=== PATIENT | female | born 1980 | race Caucasian/White ===

== ENCOUNTER 2020-07-24 10:46 | Emergency (ER) | payer MEDICAID ==
[~2020-07-24] VITALS: Ht 157 cm; Wt 81.6 kg
[~2020-07-24 10:46] MED LIST: PREN1TAB4
[2020-07-24 11:13] LABS: BILIRUBIN,URINE NEGATIVE (NEGATIVE); CLARITY,URINE CLEAR; COLOR,URINE YELLOW; GLUCOSE, URINE (UA) NEGATIVE (NEGATIVE); KETONES,URINE NEGATIVE (NEGATIVE); LEUKOCYTE ESTERASE ,URINE NEGATIVE (NEGATIVE); NITRITE,URINE NEGATIVE (NEGATIVE); PROTEIN,URINE NEGATIVE (NEGATIVE)
[2020-07-24 11:20] LABS: BASOPHILS # (AUTO) 0.1 10^3/uL (0.0-0.1); BASOPHILS % (AUTO) 0 % (0-10); EOSINOPHILS # (AUTO) 0.1 10^3/uL (0.0-0.3); EOSINOPHILS % (AUTO) 1 % (0-10); HEMATOCRIT 36 % (35-52); LYMPHOCYTES # (AUTO) 1.4 10^3/uL (1.0-4.0); LYMPHOCYTES % (AUTO) 8 % (12-44); MEAN CORPUSCULAR HEMOGLOBIN 31 pg (25-34); MEAN CORPUSCULAR HGB CONC 33 g/dL (32-36); MEAN CORPUSCULAR VOLUME 95 fL (80-99); MEAN PLATELET VOLUME 9.6 fL (9.0-12.2); MONOCYTES # (AUTO) 1.5 10^3/uL (0.0-1.0); MONOCYTES % (AUTO) 9 % (0-12); NEUTROPHILS % (AUTO) 82 % (42-75); PLATELET COUNT 340 10^3/uL (130-400); WHITE BLOOD COUNT 17.1 10^3/uL (4.3-11.0)
[2020-07-24 11:27] LABS: BACTERIA,URINE TRACE /HPF
[2020-07-24 11:33] LABS: ALBUMIN 4.1 GM/DL (3.2-4.5); CHLORIDE 99 MMOL/L (98-107); SODIUM 135 MMOL/L (135-145)
[2020-07-24 11:34] LABS: CALCIUM 9.3 MG/DL (8.5-10.1)
[2020-07-24 11:35] LABS: AMYLASE 73 U/L (25-125); GLUCOSE 111 MG/DL (70-105); TOTAL PROTEIN 7.1 GM/DL (6.4-8.2)
[2020-07-24 11:36] LABS: CARBON DIOXIDE 26 MMOL/L (21-32)
[2020-07-24 11:37] LABS: BILIRUBIN,TOTAL 0.3 MG/DL (0.1-1.0)
[2020-07-24 11:39] LABS: ALKALINE PHOSPHATASE 61 U/L (40-136); CREATININE SERUM 0.85 MG/DL (0.60-1.30); GFR ESTIMATED > 60
[2020-07-24 11:40] LABS: BUN/CREATININE RATIO 9
[2020-07-24 11:42] LABS: ALANINE AMINOTRANSFERASE 10 U/L (0-55)
[2020-07-24 11:42] LABS: AMPHETAMINE SCREEN, URINE NEGATIVE (NEGATIVE); BARBITURATE SCREEN URINE NEGATIVE (NEGATIVE); BENZODIAZEPINES SCREEN URINE POSITIVE (NEGATIVE); CANNABINOID SCREEN, URINE POSITIVE (NEGATIVE); COCAINE SCREEN URINE NEGATIVE (NEGATIVE); METHADONE STAT NEGATIVE (NEGATIVE); METHAMPHETAMINE SCREEN URINE S NEGATIVE (NEGATIVE); OPIATE SCREEN URINE POSITIVE (NEGATIVE); OXYCODONE STAT POSITIVE (NEGATIVE); PROPOXYPHENE STAT NEGATIVE (NEGATIVE); TRICYCLIC ANTIDEPRESSANTS SCRE NEGATIVE (NEGATIVE)
[2020-07-24 11:43] LABS: LIPASE 19 U/L (8-78)
[2020-07-24] MEDS ORDERED: KETOROLAC 30 MG/ML VIAL IVP ONE ×2 (11:45→13:00)
--- NOTE | 2020-07-24 12:02 | ED Abdominal Pain ---
General Chief Complaint: Abdominal/GI Problems Stated Complaint: ABD PAIN Nursing Triage Note: pt presents to ed with complaints of intermittent abdominal and rectal pain x 9 days. pt denies diahrrea but reports constipation x 2 days. pt reports nausea and one episode of vomiting today. Sepsis Screen: Possible Sepsis Risk Source of Information: Patient History of Present Illness Date Seen by Provider: Jul 24, 2020 Time Seen by Provider: 11:04 Initial Comments PT ARRIVES VIA POV FROM HOME C/O ABDOMINAL PAIN X 9 DAYS STATES PAIN STARTED IN EPIGASTRIC AREA, AND LASTED FOR 5 DAYS, THEN PAIN MOVED DOWN TO RECTAL/PERINEAL AREA FOR THE LAST 3 DAYS PT RATES PAIN 3/10 NOW, BUT IS "EXCRUCIATING" AT TIMES PAIN IS WORSE ON URINATING AND HAVING BM OR PASSING GAS--STATES SHE HAS TO STRAIN TO DO ANY OF THOSE TODAY HAD NAUSEA AND VOMITED X 1--ONLY TIME SHE HAS HAD VOMITING STATES SHE HAD BEEN HAVING DIARRHEA/LOOSE STOOLS, AND HAS HAD CONSTIPATION FOR T HE LAST 2 DAYS--HAS BEEN HAVING BM'S EVERY DAY HAD FEVER OF "ABOUT 100" YESTERDAY STATES SHE HAS BEEN DRINKING "ALOT OF HOT AND COLD LIQUIDS" NO HISTORY OF SIMILAR NO PRIOR GI PROBLEMS OR SURGERIES HAS NOT TAKEN ANYTHING FOR PAIN AT ANY TIME SYMPTOMS NO DIFFERENT TODAY, AND STATES TODAY IS NOT BAD IT HAS BEEN HAS NOT SOUGHT CARE UNTIL TODAY LMP--HAS PERIODS EVERY 18 DAYS, BUT CANNOT STATE WHEN HER LAST ONE WAS. HAS HAD BTL DENIES ANY COVID-19 SYMPTOMS OR KNOWN EXPOSURE PCP: GREGORIO--STATES SHE HAS ALL OF HER MEDICAL CARE AT Allergies and Home Medications Allergies Uncoded Allergies: [id number] (METROGEL VAGINAL) (Allergy, Mild, 10/22/08) Home Medications Ciprofloxacin HCl 500 Mg Tablet, 500 MG PO BID Prescribed by: RAVIN PINA on 07/24/20 1304 Ketorolac Tromethamine 10 Mg Tablet, 10 MG PO Q6H Prescribed by: RAVIN PINA on 07/24/20 1305 L. Acidophilus/Pectin, [place]unn 1 Each Capsule, 2 EACH PO QID Prescribed by: RAVIN PINA on 07/24/20 1304 Metronidazole 500 Mg Tablet, 500 MG PO QID Prescribed by: RAVIN PINA on 07/24/20 1304 Ondansetron 8 Mg Tab.rapdis, 8 MG PO Q4H PRN for NAUSEA/VOMITING Prescribed by: RAVIN PINA on 07/24/20 3582 Patient Home Medication List Home Medication List Reviewed: Yes Review of Systems Review of Systems Constitutional: see HPI, fever EENTM: No Symptoms Reported Respiratory: No Symptoms Reported; Denies Cough, Denies Shortness of Air Cardiovascular: No Symptoms Reported; Denies Chest Pain Gastrointestinal: See HPI, Abdominal Pain, Constipated, Diarrhea, Nausea, Vomi ting Genitourinary: See HPI Musculoskeletal: no symptoms reported; No back pain Skin: no symptoms reported Psychiatric/Neurological: Anxiety Endocrine: No Symptoms Reported Hematologic/Lymphatic: No Symptoms Reported Past Gjuaalk-Dglygg-Vukvmn Hx Past Med/Social Hx: Reviewed and Corrections made Patient Social History Alcohol Use: Occasionally Uses Drug of Choice: marijuana Smoking Status: Current Everyday Smoker Type Used: Cigarettes Recent Infectious Disease Expo: No Recent Hopitalizations: No Past Medical History Surgeries: Yes ( X 1 ) Section, Tubal Ligation Respiratory: No Cardiac: No Neurological: No : No Reproductive Disorders: No (PLACENTAL ABRUPTION WITH LAST CHILD--HAD ) Female Reproductive Disorders: Denies PHILOSOPHY FACULTY MEMBER History: Tubal Ligation Genitourinary: No Gastrointestinal: No Musculoskeletal: Yes Chronic Back Pain Endocrine: No (OBESITY) HEENT: No Cancer: No Psychosocial: Yes Anxiety, PTSD, Depression Integumentary: No Blood Disorders: No Family Medical History SOCIAL HISTORY: -ETOH--HISTORY OF REGULAR USE--"COUPLE OF TIMES A WEEK" -DRUGS--ADMITS TO THC, ALSO TESTED + FOR OXYCODONE 07/24/20 ( NO PRESCRIBED TO HER PER MED RECONCILIATION AND PER [facility]) -SMOKES 1 PPD Physical Exam Vital Signs Vital Signs - First Documented 07/24/20 10:59 Temp 35.6 Pulse 100 Resp 20 B/P (MAP) 140/104 (116) Pulse Ox 95 Capillary Refill : Less Than 3 Seconds Height/Weight/BMI Height: '" Weight: lbs. oz. kg; 33.00 BMI Method: General Appearance: WD/WN, no apparent distress, obese, other (UNKEMPT. TALKS RAPIDLY NON-STOP AT LENGTH. DOES NOT APPEAR TO BE IN ANY DISCOMFORT OR DISTRESS. WALKS UPRIGHT AND MOVES WITHOUT DIFFICULTY. 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 tested, no motor/sensory deficits, alert, oriented x 3 Skin: warm/dry, pallor, tattoos/piercings (MULTIPLE TATTOOS) Progress/Results/Core Measures Results/Orders Lab Results Laboratory Tests Test 07/24/20 10:59 07/24/20 11:07 Range/Units Urine Color YELLOW Urine Clarity CLEAR Urine pH 6.0 5-9 Urine Specific [place] 1.025 H 1.016-1.022 Urine Protein NEGATIVE NEGATIVE Urine Glucose (UA) NEGATIVE NEGATIVE Urine Ketones NEGATIVE NEGATIVE Urine Nitrite NEGATIVE NEGATIVE Urine Bilirubin NEGATIVE NEGATIVE Urine Urobilinogen 0.2 < = 1.0 MG/DL Urine Leukocyte Esterase NEGATIVE NEGATIVE Urine RBC (Auto) TRACE-I NEGATIVE Urine RBC 2-5 H /HPF Urine WBC NONE /HPF Urine Squamous Epithelial Cells 2-5 /HPF Urine Crystals NONE /LPF Urine Bacteria TRACE /HPF Urine Casts NONE /LPF Urine Mucus SMALL H /LPF Urine Culture Indicated NO Urine Opiates Screen POSITIVE H NEGATIVE Urine Oxycodone Screen POSITIVE H NEGATIVE Urine Methadone Screen NEGATIVE NEGATIVE Urine Propoxyphene Screen NEGATIVE NEGATIVE Urine Barbiturates Screen NEGATIVE NEGATIVE Ur Tricyclic Antidepressants Screen NEGATIVE NEGATIVE Urine Phencyclidine Screen NEGATIVE NEGATIVE Urine Amphetamines Screen NEGATIVE NEGATIVE Urine Methamphetamines Screen NEGATIVE NEGATIVE Urine Benzodiazepines Screen POSITIVE H NEGATIVE Urine Cocaine Screen NEGATIVE NEGATIVE Urine Cannabinoids Screen POSITIVE H NEGATIVE White Blood Count 17.1 H 4.3-11.0 10^3/uL Red Blood Count 3.82 3.80-5.11 10^6/uL Hemoglobin 12.0 11.5-16.0 g/dL Hematocrit 36 35-52 % Mean Corpuscular Volume 95 80-99 fL Mean Corpuscular Hemoglobin 31 25-34 pg Mean Corpuscular Hemoglobin Concent 33 32-36 g/dL Red Cell Distribution Width 12.7 10.0-14.5 % Platelet Count 340 130-400 10^3/uL Mean Platelet Volume 9.6 9.0-12.2 fL Immature Granulocyte % (Auto) 1 % Neutrophils (%) (Auto) 82 H 42-75 % Lymphocytes (%) (Auto) 8 L 12-44 % Monocytes (%) (Auto) 9 0-12 % Eosinophils (%) (Auto) 1 0-10 % Basophils (%) (Auto) 0 0-10 % Neutrophils # (Auto) 14.0 H 1.8-7.8 10^3/uL Lymphocytes # (Auto) 1.4 1.0-4.0 10^3/uL Monocytes # (Auto) 1.5 H 0.0-1.0 10^3/uL Eosinophils # (Auto) 0.1 0.0-0.3 10^3/uL Basophils # (Auto) 0.1 0.0-0.1 10^3/uL Immature Granulocyte # (Auto) 0.1 0.0-0.1 10^3/uL Neutrophils % (Manual) 79 % Lymphocytes % (Manual) 10 % Monocytes % (Manual) 8 % Eosinophils % (Manual) 0 % Basophils % (Manual) 0 % Band Neutrophils 3 % Blood Morphology Comment NORMAL Sodium Level 135 135-145 MMOL/L Potassium Level 4.0 3.6-5.0 MMOL/L Chloride Level 99 98-107 MMOL/L Carbon Dioxide Level 26 21-32 MMOL/L Anion Gap 10 5-14 MMOL/L Blood Urea Nitrogen 8 7-18 MG/DL Creatinine 0.85 0.60-1.30 MG/DL Estimat Glomerular Filtration Rate > 60 BUN/Creatinine Ratio 9 Glucose Level 111 H 70-105 MG/DL Calcium Level 9.3 8.5-10.1 MG/DL Corrected Calcium 9.2 8.5-10.1 MG/DL Magnesium Level 2.0 1.6-2.4 MG/DL Total Bilirubin 0.3 0.1-1.0 MG/DL Aspartate Amino Transf (AST/SGOT) 11 5-34 U/L Alanine Aminotransferase (ALT/SGPT) 10 0-55 U/L Alkaline Phosphatase 61 40-136 U/L Total Protein 7.1 6.4-8.2 GM/DL Albumin 4.1 3.2-4.5 GM/DL Amylase Level 73 25-125 U/L Lipase 19 8-78 U/L Serum Alcohol < 10 <10 MG/DL My Orders Orders - RAVIN PINA DO Urine Bedside (07/24/20 11:02) Ua Culture If Indicated (07/24/20 11:02) Ed Iv/Invasive Line Start (07/24/20 11:13) Alcohol (07/24/20 11:13) Amylase (07/24/20 11:13) Cbc With Automated Diff (07/24/20 11:13) Comprehensive Metabolic Panel (07/24/20 11:13) Drug Screen Stat (Urine) (07/24/20 11:13) Lipase (07/24/20 11:13) Magnesium (07/24/20 11:13) Manual Differential (07/24/20 11:07) Ct Abd/Pelvis Wo(Kidney Stone) (07/24/20 11:42) Acute Abd Series (07/24/20 11:42) Ketorolac Injection (Toradol Injection) (07/24/20 11:45) Metronidazole Tablet (Flagyl Tablet) (07/24/20 13:00) Ketorolac Injection (Toradol Injection) (07/24/20 13:00) Ciprofloxacin Iv 400mg/200ml (Cipro Iv S (07/24/20 13:15) Medications Given in ED Current Medications Medications Dose Ordered Sig/Lissette Route Start Time Stop Time Status Last Admin Dose Admin Ciprofloxacin/ Dextrose 200 ml @ 200 mls/hr ONCE ONCE IV 07/24/20 13:15 07/24/20 14:14 DC 07/24/20 13:13 200 MLS/HR Ketorolac Tromethamine 30 mg ONCE ONCE IVP 07/24/20 11:45 07/24/20 11:46 DC 07/24/20 11:47 30 MG Metronidazole 500 mg ONCE ONCE PO 07/24/20 13:00 07/24/20 13:01 DC 07/24/20 13:12 500 MG Vital Signs/I&O 07/24/20 07/24/20 10:59 14:18 Temp 35.6 36.8 Pulse 100 83 Resp 20 16 B/P (MAP) 140/104 (116) 116/76 Pulse Ox 95 99 Blood Pressure Mean: 116 Progress Progress Note : Progress Note UNEVENTFUL ER STAY VITALS STABLE NO FEVER GIVEN IV FLUIDS, TORADOL WITH IMPROVEMENT IN SYMPTOMS ALSO GIVEN CIPRO IV AND FLAGYL PO--PT STATES SHE CAN TAKE AND HAS TAKEN ORAL FLAGYL WITHOUT ANY PROBLEMS Diagnostic Imaging Comments ABDOMEN XRAYS--PER RADIOLOGIST REPORT AT 1239 Impression: 1. The bowel gas pattern is nonspecific. There is no acute abnormality identified. 2. There does be a fair amount of fecal material throughout the colon. 3. Please refer to the CT abdomen/pelvis exam report for additional information. CT ABDOMEN/PELVIS--PER RADIOLOGIST REPORT AT 1253 IMPRESSION: 1. Diverticulitis involving the sigmoid colon. No abscess or free fluid. No evidence of free air. 2. No evidence of obstructing calculi or hydronephrosis. Punctate nonobstructing calculus is seen in the inferior pole of the right kidney. Reviewed: Reviewed by Me Departure Communication (Admissions) 1254--SPOKE WITH DR. ESTES, SURGEON RAZOR SHARPENER, ADVISES TO SEND HOME ON ORAL ANTIBIOTICS AND HE WILL SEE PT IN FOLLOW UP IN CLINIC. Impression Primary Impression: Diverticulitis of intestine Additional Impression: Illicit drug use Disposition: HOME, SELF-CARE Condition: Improved Departure-Patient Inst. Referrals: ANDREW ESTES,LOCAL PHYSICIAN (PCP) Primary Care Physician Patient Instructions: Diverticulosis (DC) Add. Discharge Instructions: CLEAR LIQUIDS--WATER, BROTH, JELLO, GATORADE, CLEAR JUICES NO FOOD UNTIL YOU ARE RECHECKED AND CLEARED BY DR. CONTINUE YOUR REGULAR MEDICATIONS PRESCRIBED FOLLOW UP WITH DR. ESTES, LOCAL SURGEON, IN 3-4 DAYS, OR YOU MAY FOLLOW UP WITH [facility] IN A FEW DAYS FOR FURTHER CARE RETURN TO ER IF SYMPTOMS WORSEN All discharge instructions reviewed with patient and/or family. Voiced understanding. Scripts Ketorolac Tromethamine (Ketorolac Tromethamine) 10 Mg Tablet 10 MG PO Q6H for Pain, #15 TAB Prov: RAVIN PINA DO 07/24/20 Ondansetron (Ondansetron Odt) 8 Mg Tab.rapdis 8 MG PO Q4H PRN for NAUSEA/VOMITING, #10 TAB Prov: RAVIN PINA DO 07/24/20 L. Acidophilus/Pectin, [place] (Acidophilus Capsule) 1 Each Capsule 2 EACH PO QID, #40 CAP Prov: RAVIN PINA DO 07/24/20 Metronidazole (Flagyl) 500 Mg Tablet 500 MG PO QID, #40 TAB Prov: RAVIN PINA DO 07/24/20 Ciprofloxacin HCl (Ciprofloxacin HCl) 500 Mg Tablet 500 MG PO BID, #20 TAB Prov: RAVIN PINA DO 07/24/20 RAVIN PINA DO Jul 24, 2020 12:02
--- NOTE | 2020-07-24 12:24 | Diagnostic Imaging Report ---
Acute abdomen series. Indication: Abdominal pain. There are no prior plain film studies available for comparison. The accompanying PA chest shows heart size to be within normal limits. The lungs are clear. There is no sign of a pneumoperitoneum. Supine and erect views of the abdomen obtained. There is gas in both the large and small bowel in a nonspecific fashion. There is no sign of obstruction. There also appears to be a fair amount of fecal material throughout the colon. These findings are similar to the CT abdomen/pelvis exam performed just prior to this study. There is no mass or organomegaly identified. The osseous structures are intact. Impression: 1. The bowel gas pattern is nonspecific. There is no acute abnormality identified. 2. There does be a fair amount of fecal material throughout the colon. 3. Please refer to the CT abdomen/pelvis exam report for additional information. Dictated by: Dictated on workstation # [id number]
[2020-07-24 12:25] LABS: BAND NEUTROPHILS 3 %; BASOPHILS % (MANUAL) 0 %; EOSINOPHILS % (MANUAL) 0 %; LYMPHOCYTES % (MANUAL) 10 %; MONOCYTES % (MANUAL) 8 %; NEUTROPHILS % (MANUAL) 79 %; RBC MORPH NORMAL
--- NOTE | 2020-07-24 12:47 | Diagnostic Imaging Report ---
PROCEDURE: CT urinary tract, rule out kidney stone. TECHNIQUE: Multiple contiguous axial images were obtained through the abdomen and pelvis without the use of intravenous contrast. Auto Exposure Controls were utilized during the CT exam to meet ALARA standards for radiation dose reduction. INDICATION: Microhematuria. Abdominal pain. COMPARISON: None. FINDINGS: The heart is unremarkable. The lung bases are clear. The liver, spleen, pancreas, and adrenal glands have a normal appearance. No evidence of obstructive renal calculi or hydronephrosis. A punctate nonobstructing calculus is seen in the inferior pole of the right kidney measuring 2 mm. There is no pathologically enlarged mesenteric or retroperitoneal adenopathy. The bowel loops are nondilated. The appendix is visualized in the right lower quadrant has a normal appearance. Diverticuli are seen throughout the sigmoid colon with pericolonic inflammatory changes present. There is no free fluid or free air. No acute osseous abnormalities. The urinary bladder is decompressed. There is no free air, loculated collection, or adenopathy in the pelvis. IMPRESSION: 1. Diverticulitis involving the sigmoid colon. No abscess or free fluid. No evidence of free air. 2. No evidence of obstructing calculi or hydronephrosis. Punctate nonobstructing calculus is seen in the inferior pole of the right kidney. Dictated by: Dictated on workstation # [id number]
[2020-07-24] MEDS ORDERED: metroNIDAZOLE 500 MG (FLAGYL) TAB PO ONE (13:00)
[2020-07-24] MEDS ORDERED: ONDA8TAB13 PO (13:04)
[2020-07-24] MEDS ORDERED: CIPR500T5 PO (13:04)
[2020-07-24] MEDS ORDERED: L. A1CAP11 PO (13:04)
[2020-07-24] MEDS ORDERED: METR500T PO (13:04)
[2020-07-24] MEDS ORDERED: KETO10TA PO (13:05)
[2020-07-24] MEDS ORDERED: CIPROFLOXACIN IV 400MG/200ML 200 ML IV ONE (13:15)
[2020-07-24 14:18] VITALS: BP 116/76
== END 2020-07-24 14:18 | disposition home or self-care (01) ==
LOC: EDUNIT# 10:46 → ER 10:48
DX: K57.32 Diverticulitis of large intestine without perforation or abscess without bleeding (principal); F19.90 Other psychoactive substance use, unspecified, uncomplicated; E66.9 Obesity, unspecified; Z68.33 Body mass index [BMI] 33.0-33.9, adult; F17.210 Nicotine dependence, cigarettes, uncomplicated
CPT/HCPCS: 36415; 74022; 74176; 80053; 80306; 80320; 81000; 82150; 83690; 83735; 84703; 85007; 85027

== ENCOUNTER → 2020-08-31 | Outpatient (CLI) | payer MEDICAID ==
[~2020-08-31] VITALS: Ht 157.5 cm; Wt 84.0 kg
[~2020-08-31] MED LIST changes: +CIPR500T5 PO; +KETO10TA PO; +L. A1CAP11 PO; +LORA-404 PO; +METR500T PO; +ONDA8TAB13 PO; +VNL75T PO
== END | disposition home or self-care (01) ==
LOC: PREOP 05:40
PROVIDERS: ATTEND Surgery
DX: Z01.818 Encounter for other preprocedural examination (principal)

== ENCOUNTER 2020-09-07 08:12 | Day surgery (SDC) | payer MEDICAID ==
[~2020-09-07] VITALS: Ht 157 cm; Wt 84.0 kg
[2020-09-07 08:20] VITALS: BP 131/85
[2020-09-07] MEDS ORDERED: LACTATED RINGERS 1,000 ML IV STA (08:21)
[2020-09-07] MEDS ORDERED: MIDAZOLAM 2 MG/2 ML (VERSED) VIAL ONE (09:43)
[2020-09-07] MEDS ORDERED: PROPOFOL INJECTION 50 ML IV ONE ×2 (09:43→09:55)
[2020-09-07] MEDS ORDERED: ONDANSETRON 4 MG/2 ML (SDV) Z0FRAN IVP ONE (09:45)
--- NOTE | 2020-09-07 09:51 | Progress Note-Pre Operative ---
Pre-Operative Progress Note H&P Reviewed The H&P was reviewed, patient examined and no changes noted. Time Seen by Provider: 09:49 Date H&P Reviewed: September 07, 2020 Time H&P Reviewed: 09:49 Pre-Operative Diagnosis: diverticulitis, hx of rectal bleed ANDREW ESTES DO September 07, 2020 09:51
--- NOTE | 2020-09-07 10:28 | Anesthesia-General Post-Op ---
MAC Patient Condition Mental Status/LOC: Same as Preop Cardiovascular: Satisfactory Nausea/Vomiting: Absent Respiratory: Satisfactory Pain: Controlled Complications: Absent Post Op Complications Complications None Follow Up Care/Instructions Patient Instructions None needed. Anesthesiology Discharge Order Discharge Order Patient is doing well, no complaints, stable vital signs, no apparent adverse anesthesia problems. No complications reported per nursing. CABRERA MEJIA CRNA September 07, 2020 10:28
[2020-09-07 10:30] VITALS: BP 103/65
[2020-09-07 10:35] VITALS: BP 112/70
--- NOTE | 2020-09-07 10:37 | Progress Note-Post Operative ---
Post-Operative Progess Note Surgeon (s)/[place] (s) Surgeon ANDREW ESTES DO [place]: none Pre-Operative Diagnosis diverticulitis, hx of rectal bleed Post-Operative Diagnosis Diverticula Colonic narrowing Int hemorrhoids Procedure & Operative Findings Date of Procedure 09/07/20 Procedure Performed/Findings PROCEDURE NOTE: After informed consent was obtained, the patient was brought to the endoscopy suite, placed in bed in left lateral decubitus position. She was administered IV sedation by the STEAM FITTER HELPER who then monitored her vitals the entire time, heart rate, blood pressure and pulse ox, started the colonoscopy. On the way in, noted diverticula, took a picture of this. There was a narrowing or turn in the Sigmoid/Desc Colon, had a very hard time getting past here, but finally able to get past it and then pushed all the way to the cecum about 150 cm in, took a picture of the appendiceal orifice and noted the ileo-cecal valve. Then slowly withdrew the scope insufflating to look circumferentially at the stein looking at the cecum, up the ascending colon to the hepatic flexure, down the transverse colon, to the splenic flexure, into the descending colon down into the sigmoid. At this spot it looked a little inflamed and did a cold biopsy; this was right at the area I had trouble getting past. Finally into the rectum, retroflexed in the rectal vault, saw some minimal internal hemorrhoids and took a picture.Then removed the scope. The patient tolerated the procedure. She was recovered in endoscopy suite. Anesthesia Type IV sedation by STEAM FITTER HELPER Estimated Blood Loss Estimated blood loss (mL): scant Specimens/Packing Specimens Removed sigmoid bx ANDREW ESTES DO September 07, 2020 10:36
--- NOTE | 2020-09-07 10:37 | Endoscopy Discharge Instruct ---
Endo Procedure/Findings Findings 1.: Diverticulosis 2.: Internal Hemorrhoids 3.: Other Findings (colonic narrowing vs. stricture) Discharge Instructions - Activity: You might feel a little sleepy until tomorrow. This is due to the medicine you received to relax you. Until tomorrow, you should: NOT drive a car, operate machinery or power tools. NOT drink any alcoholic beverages. NOT make any important decisions or sign importortant papers. Do not return to work until tomorrow, unless otherwise instructed. Resume previous activities tomorrow. Diet: Start by taking liquids. If you tolerate liquids, advance to solid food. 1.: Colonscopy in 10 years Notify Physician - If you experience excessive bleeding, unusual abdominal pain, fever, or chest pain, contact your doctor immediately. ANDREW ESTES DO September 07, 2020 10:37
[2020-09-07 11:15] VITALS: BP 114/88
== END 2020-09-07 11:20 | disposition home or self-care (01) ==
LOC: ENDO 08:12
PROVIDERS: ATTEND Surgery
DX: K57.31 Diverticulosis of large intestine without perforation or abscess with bleeding (principal); K56.699 Other intestinal obstruction unspecified as to partial versus complete obstruction; K64.8 Other hemorrhoids; K57.33 Diverticulitis of large intestine without perforation or abscess with bleeding; F32.9 Major depressive disorder, single episode, unspecified; F41.9 Anxiety disorder, unspecified; K21.9 Gastro-esophageal reflux disease without esophagitis; F43.10 Post-traumatic stress disorder, unspecified; F17.210 Nicotine dependence, cigarettes, uncomplicated; Z79.899 Other long term (current) drug therapy
CPT/HCPCS: 84703